=== PATIENT | female | born 1985 ===

== ENCOUNTER 2023-06-17 05:10 | Day surgery (SDC) | payer OTHER ==
[~2023-06-17] VITALS: Ht 167.6 cm; Wt 108.4 kg
[2023-06-17] MEDS ORDERED: PERCOCET 5-3251 EACH PO (08:23)
[2023-06-17] MEDS ORDERED: RECTICARE30 GM TOP (08:23)
== END 2023-06-17 16:15 | disposition home or self-care (01) ==
LOC: CIR.AMB 05:10
PROVIDERS: ATTEND Surgery
DX: K62.5 Hemorrhage of anus and rectum (principal); K60.1 Chronic anal fissure; Z20.822 Contact with and (suspected) exposure to COVID-19; K59.4 Anal spasm; K59.09 Other constipation; I10 Essential (primary) hypertension; K64.9 Unspecified hemorrhoids; E11.9 Type 2 diabetes mellitus without complications; K64.8 Other hemorrhoids